=== PATIENT | female | born 1970 | race Caucasian/White ===

== ENCOUNTER 2016-11-02 20:53 | Emergency (ER) | payer OTHER ==
[~2016-11-02] VITALS: Ht 175.3 cm; Wt 109.1 kg
[~2016-11-02 20:53] MED LIST: CITA20TA11 PO; DOCU-41 PO; Hydrocodone/Acetaminophen PO; Ibuprofen PO
--- NOTE | 2016-11-02 20:58 | ED.REPORT ---
HPI-Chest Pain 40 and Over Date of Service November 02, 2016 ED Provider: Dr. Nick Flowers M.D. A healthy 46 year old female presents to the ED with left-sided chest pain onset one week ago. The pain is described as "heaviness," with radiation down her left arm. The patient also reports nausea, "fluctuating blood pressure," and an acid reflux sensation. She denies vomiting, diaphoresis, cough, or other symptoms. One week ago the patient was seen by her PCP who placed her on a prednisone taper, which she finished three days ago with no relief. The patient then spoke with her PCP yesterday and scheduled an appointment for tomorrow. However, her is a nurse and recommended she come in this evening. Nursing Notes Stated Complaint: CHEST PAIN Nursing Notes Reviewed: Yes Allergies: Coded Allergies: No Known Allergies (Unverified , 12/29/13) Scheduled Citalopram (Citalopram) 20 Mg Tablet 20 MG PO DAILY Omeprazole (Omeprazole) 20 Mg Tablet.dr 20 MG PO BID Scheduled PRN ([Hydrocodone/Acetaminophen]) 1 TAB TABLET 1-2 TAB PO Q4H PRN PRN For Moderate Pain ([Ibuprofen]) 600 MG TABLET 600 MG PO Q6H PRN PRN For Pain Docusate Sodium (Colace) 100 Mg Capsule 100 MG PO BID PRN PRN For Constipation General Time Seen by MD: 20:57 Chief Complaint Chest pain Hx Obtained From: Patient Arrived By: Walk-in Sudden in Onset?: No Onset Occurred: 1 week ago Symptom Duration: Since onset Location: : Chest left Quality: Heaviness, Painful Radiation: : Arm left Severity: Current: Moderate Severity: Maximum: Moderate Pertinent Negative: Relieved by nothing Recent Healthcare: Recent doctor visit Past Medical History Past Medical History Notes: Past Medical History Ovarian cysts Past Surgical History D&C X2 Bilateral Salpingectomy Right Oophorectomy Reports: (x3) Reports: Tubal ligation Smoking History Never Smoker Social History Other Social History: Good social support, Ambulatory Status Independent Review of Systems Review of Systems Note: + Fluctuating blood pressure, acid reflux sensation Constitutional: Denies: Fever Respiratory: Denies: Non-productive cough, Shortness of breath Cardiovascular: Reports: Chest pain (Left-sided) GI: Reports: Nausea, Denies: Vomiting Musculoskeletal: Reports: Extremity pain (Left arm) Skin: Denies Diaphoresis Complete sys rev & neg: except as marked. Physical Exam Initial Vital Signs Vital Signs (First) Date Time Temp Pulse Resp B/P Pulse Ox O2 Delivery O2 Flow Rate FiO2 11/02/16 21:14 36.7 78 22 153/94 98 Room Air Initial VS: Reviewed Head / Eyes: Atraumatic, Normocephalic ENT: Conjunctiva normal, No scleral icterus Skin: Warm, Dry, No cyanosis Neurologic: Alert, Oriented, Nonfocal Psychiatric: Mood/affect normal, Behavior normal, Normal thought content General/Constitutional: Awake, Alert, No acute distress Respiratory / Chest: Breath sounds NL, Breath sounds = bilat, No respiratory distress Cardiovascular: Heart rate NL, Regular rhythm, Heart sounds NL Abdomen: Soft, Non-tender Neck: Supple, Full range of motion, No JVD, Thyroid NL Interpretation & Diagnostics Lab Results Interpretation Result Diagram: 11/02/16210911/02/162109 Test 11/02/16 21:10 11/03/16 00:05 White Blood Count 9.0th/mm3 (3.8-10.1) Red Blood Count 4.69mil/mm3 (3.90-5.20) Hemoglobin 14.2g/dL (12.0-15.6) Hematocrit 42.4% (35.0-46.0) Mean Corpuscular Volume 90.4fL (81-100) Mean Corpuscular Hemoglobin 30.3pg (27.0-35.0) Mean Corpuscular Hemoglobin Concent 33.5% (32.0-37.0) Red Cell Distribution Width 12.0% (12.3-15.4) Platelet Count 260bil/L (150-400) Neutrophils (%) (Auto) 53.0% (40-74) Lymphocytes (%) (Auto) 37.9% (14-46) Monocytes (%) (Auto) 6.0% (4-12) Eosinophils (%) (Auto) 1.9% (0-5) Basophils (%) (Auto) 0.9% (0-3) Prothrombin Time 9.6sec (8.1-12.5) Prothromb Time International Ratio 0.90ratio Activated Partial Thromboplast Time 27.3sec (22.8-33.0) D-Dimer 0.62mg/L FEU (<0.50) Sodium Level 140mEq/L (134-144) Potassium Level 4.2mEq/L (3.5-5.2) Chloride Level 102mEq/L (97-108) Carbon Dioxide Level 22mmol/L (18-29) Blood Urea Nitrogen 17mg/dL (6-24) Creatinine 0.95mg/dL (0.57-1.00) Estimat Glomerular Filtration Rate 90mL/min (>59) Glucose Level 115mg/dL (60-99) Calcium Level 9.4mg/dL (8.5-10.1) Magnesium Level 2.1mg/dL (1.6-2.6) Total Bilirubin 0.6mg/dL (0.0-1.2) Aspartate Amino Transf (AST/SGOT) 30U/L (0-50) Alanine Aminotransferase (ALT/SGPT) 50U/L (0-32) Alkaline Phosphatase 75U/L (25-150) Pro-B-Type Natriuretic Peptide 20.21pg/mL (0-249) Total Protein 7.1g/dL (6.4-8.4) Albumin 4.2g/dL (3.4-5.0) Troponin T 0.010ug/L (0.0-0.011) Hold Ferrari Top Tube Received (Received) ECG Interpretation ECG Interpretation: Sinus rhythm rate 69 LVH Time: 21:07 Interpreted by: ED physician ECG Interpretation: Sinus rhythm rate 60 LVH Unchanged from prior Time: 00:49 Interpreted by: ED physician X-Ray Chest Interpretation Chest Xray Interpretation: IMPRESSION: 1. No acute cardiopulmonary disease. Dictated by: Tj Red M.D. on 11/02/2016 at 21:45 View: AP & lat Interpretation / Wet Read by: Interpret - Radiologist CT Chest Interpretation CONCLUSION: No evidence of pulmonary embolism or thoracic aortic dissection. Lungs are clear. Report transmitted to the ED by radiologist Enrrique Wayne M.D. at 11/02/2016 - 11:16:26 PM PDT Study type: CT pulm angiogram Interpretation / Wet Read by: Interpret - Radiologist Re-Eval/Medical Decision Med Decision/Clinical Course 46-year-old presents with chest pain basically day and day out for six days. She has some mild shortness of breath associated no other focal complaints. D-dimer is mildly elevated but CT is negative. Enzymes are negative 2 and EKG has LVH but no other changes. I suspect this is esophageal in character, but could also be a pleuritis. Is not particularly positional or pleuritic. Begun with omeprazole twice a day. Ibuprofen as needed. Follow-up with PCP. Source of Hx: Old records Time of Eval: 23:51 Patient Status: Condition improved Re-Evaluation/Progress Note: Discussed with patient lab and x-ray results with plan for CT. Time of Eval: 01:02 Patient Status: Condition improved Re-Evaluation/Progress Note: Discussed with patient lab, x-ray, and CT results, diagnosis, and plan for discharge. Follow-up and return to the ER instructions given. Patient agrees with plan for care and all questions were addressed. Counseled Regarding: Diagnosis, Lab results, Need for follow-up, When/why to return to ED Discharge & Departure Shift Change Sign-Out Response to Therapy: Improved Primary Impression: Non-cardiac chest pain Additional Impression: Esophagitis Disposition: Home Discharge Condition All VS Reviewed: Yes Condition: Improved Patient Instructions: Chest Pain (ED), Esophageal Spasm (ED) Additional Instructions: Begin omeprazole twice daily for four weeks. Use ibuprofen 600 mg up to four times daily with food, if needed for pain. Follow-up with your doctor in the office. This is very unlikely cardiac, but we advised a stress test to complete your evaluation. Return if any immediate issues, such as bloody sputum, fever, or other new symptoms of concern. Referrals: Senia Farmer MD (PCP) Scribe Attestation Portions of this note were transcribed by Kristine Melendrez. I, Dr. Flowers, personally performed the history, physical exam, and medical decision-making; I reviewed and confirmed the accuracy of the information in the transcribed note. Signed by: Mirna Coburn, 11/03/2016, 03:05 copies to: Senia Farmer MD, Christopher W MD November 02, 2016 20:58 KRISTINE MELENDREZ November 02, 2016 21:05
[2016-11-02 21:14] VITALS: BP 153/94; PULSE 78; RESP 22; O2SAT 98
[2016-11-02] MEDS ORDERED: Pantoprazole 4 mg/mL 10 mL Inj IVPUSH ONE (21:20)
[2016-11-02] MEDS ORDERED: 0.9% Sodium Chloride 1,000 ML IV ONE (21:20)
[2016-11-02] MEDS ORDERED: Ondansetron 2 mg/mL 2 mL Inj IVPUSH ONE (21:20)
[2016-11-02 21:28] LABS: BASOPHILS % (AUTO) 0.9 % (0-3); EOSINOPHILS % (AUTO) 1.9 % (0-5); Mean Corpuscular Hemoglobin 30.3 pg (27.0-35.0); Mean Corpuscular Volume 90.4 fL (81-100); Platelet Count 260 bil/L (150-400)
[2016-11-02 21:41] LABS: TROPONIN T 0.01 ug/L (0.0-0.011)
[2016-11-02 21:42] LABS: D-Dimer 0.62 mg/L FEU (<0.50); INR 0.9 ratio
[2016-11-02 21:46] VITALS: BP 135/74; PULSE 72; RESP 19; O2SAT 99
--- NOTE | 2016-11-02 21:48 | DRSVH ---
PROCEDURE: X-RAY CHEST, TWO VIEWS ([id number]) INDICATIONS: chest pain TECHNIQUE: 2 views of the chest were acquired. COMPARISON: [facility], CR, CHEST 1VW, 08/31/2009, 10:14. FINDINGS: Surgical changes and devices: None. Lungs and pleura: No pleural effusions or pneumothorax. Lungs are clear. Mediastinum: Mediastinal contours are normal. Heart size is normal. Bones and chest wall: No suspicious bony abnormalities. Soft tissues appear unremarkable. IMPRESSION: 1. No acute cardiopulmonary disease. Dictated by: Tj Red M.D. on 11/02/2016 at 21:45 Approved by: Tj Red M.D. on 11/02/2016 at 21:46
[2016-11-02 21:52] LABS: Magnesium 2.1 mg/dL (1.6-2.6)
[2016-11-03] MEDS ORDERED: OMEP20TA86 PO (01:09)
--- NOTE | 2016-11-03 07:25 | DRSVH ---
PROCEDURE: CT ANGIO CHEST PULMONARY EMBOLISM ([id number]) INDICATIONS: cp, elevate d dimer TECHNIQUE: After the administration of intravenous contrast, 2 mm thick sections acquired from the pulmonary api wes to the posterior costophrenic angles. 3-dimensional maximum intensity projection (MIP) coronal a nd sagittal reformats were then acquired through the thorax. For radiation dose reduction, the follo wing was used: automated exposure control, adjustment of mA and/or kV according to patient size. COMPARISON: [facility], CT, CT CHEST WO CON, 07/03/2016, 12:36. FINDINGS: Image quality: Excellent. Pulmonary arteries: Pulmonary arteries are normal in size, and demonstrate no intraluminal filling d efects to suggest central pulmonary embolism. Lungs and pleura: Lungs are clear. No pleural effusions or pneumothorax. Central and peripheral ai rways are patent. Mediastinum: Heart size is normal, without pericardial effusion. No mediastinal or hilar adenopathy . Thoracic aorta is normal in caliber and enhancement. Esophagus is normal in caliber, without hiat al hernia. Bones and chest wall: No suspicious bony lesions. Ribs and thoracic spine appear intact throughout. Thyroid gland is present. No axillary or supraclavicular adenopathy. Possible nodular area in the medial left right breast parenchyma measuring 1.7 CM of (se 6 im 75). Abdomen: Fatty infiltration of the partially visualized liver. Otherwise partially visualized upper a bdominal solid organs appear normal in the early arterial phase of enhancement. IMPRESSION: 1. No central acute pulmonary emboli. 2. Nodularity in the medial right breast. There is no history mammography at this institution. If the patient has not undergone mammography recommended diagnostic mammography with ultrasound. This finding was not mentioned on the pulmonary report. 3. There are no acute discrepancies with the pulmonary report. Dictated by: Kevin Belcher M.D. on 11/03/2016 at 7:11 Approved by: Kevin Belcher M.D. on 11/03/2016 at 7:18
== END 2016-11-03 01:55 | disposition home or self-care (01) ==
LOC: SED 20:53
DX: R07.89 Other chest pain (principal); K20.9 Esophagitis, unspecified; R11.0 Nausea
CPT/HCPCS: 36415; 71020; 71275; 80053; 83036; 83735; 83880; 84484; 85025; 85378; 85610; 85730; 93005; 96361; 96374; 96375; 99285; J1885; J2405; J7030; Q9967